=== PATIENT | female | born 1970 | race Caucasian/White ===

== ENCOUNTER 2018-03-29 21:49 | Emergency (ER) | payer SELFPAY ==
[~2018-03-29] VITALS: Ht 165.1 cm; Wt 87.3 kg
[~2018-03-29 21:49] MED LIST: ABIL5TAB6 PO; ATEN-100 PO; CITA20 PO; MELO7.5T PO; MIRTA15 PO; MOTR200T PO; ROBA750T3 PO
[2018-03-29 21:59] VITALS: BP 190/98; PULSE 77; RESP 18; TEMP 98.6; O2SAT 99
[2018-03-29] MEDS ORDERED: ATEN100T PO (22:08)
[2018-03-29] MEDS ORDERED: PERC10TA27 PO ×2 (22:08→22:22)
[2018-03-29] MEDS ORDERED: LISI40TA PO (22:08)
[2018-03-29] MEDS ORDERED: CELE40TA PO (22:08)
[2018-03-29] MEDS ORDERED: SERO50TA PO (22:08)
[2018-03-29 22:09] VITALS: BP 173/99; PULSE 78; RESP 16; O2SAT 99
[2018-03-29] MEDS ORDERED: IBUP1TAB7 PO (22:18)
[2018-03-29] MEDS ORDERED: HYDROmorphone HCL PF 1 MG/ML VIAL IM ONE (22:30)
[2018-03-29] MEDS ORDERED: PROMETHAZINE INJ 25 MG/ML VIAL IM ONE (22:30)
[2018-03-29] MEDS ORDERED: KETOROLAC TROMETHAMINE 60 MG/2 ML (IM) VIAL IM ONE (22:30)
[2018-03-29] MEDS ORDERED: HYDROmorphone HCL PF 2 MG/ML VIAL IM ONE (22:30)
--- NOTE | 2018-03-29 22:34 | PD ---
HPI Chief Complaint: Pain: Acute or Chronic Time Seen by Provider: 22:12 Travel History International Travel<30 days: No Contact w/Intl Traveler<30days: No Traveled to known affect area: No History of Present Illness HPI The patient is a 48-year-old female that lives in [place] and is awaiting a total left hip replacement at [facility]. She has chronic hip pain and has been on Percocet 10 mg every 6 hours for the past 4 months. She says she left her bottle of Percocet in her house in [place] and needs a refill. She also wants a shot for the pain, she states her daughter is driving. She states the pain is an intensity level of 8/10 and sharp pain. He states he also has plantar fasciitis on the right foot. 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 She states the femoral head is totally gone and she needs a total hip on the left. PFSH Past Medical History Arthritis: Yes Anxiety: Yes Depression: Yes Diminished Hearing: No Hypertension: Yes Immunizations Current: Yes Tetanus Vaccination: Unknown Influenza Vaccination: Yes ?: Not Menopausal: Yes Ovarian Cysts: Yes (L) Past Surgical History Cholecystectomy: Yes Hysterectomy: Yes Tonsillectomy: Yes Social History Alcohol Use: No Tobacco Use: Yes (12/03 PPD) Substance Use: No Allergies-Medications (Allergen,Severity, Reaction): Coded Allergies: cephalexin (Unverified Allergy, Severe, RASH, 03/29/18) ondansetron (Unverified Allergy, Severe, RASH, 03/29/18) Sulfa (Sulfonamide Antibiotics) (Unverified Allergy, Intermediate, RASH, ) Reported Meds & Prescriptions Reported Meds & Active Scripts Active Reported Ibuprofen 800 Mg Tab 800 Mg PO Q6HR PRN Seroquel (Quetiapine Fumarate) 50 Mg Tab 50 Mg PO HS Celexa (Citalopram Hydrobromide) 40 Mg Tab 40 Mg PO DAILY Lisinopril 40 Mg Tab 40 Mg PO DAILY Atenolol 100 Mg Tab 100 Mg PO DAILY Percocet (Oxycodone-Acetaminophen) 10-325 mg Tab 1 Tab PO Q6H PRN Review of Systems Except as stated in HPI: all other systems reviewed are Neg Physical Exam Narrative GENERAL: Well-nourished, well-developed patient in moderate apparent distress with her right hip discomfort. Her vital signs show blood pressure 190/98 but repeat is 173/99. She states her blood pressure is elevated because of the pain. SKIN: Focused skin assessment warm/dry. No erythema is present over the left hip. There is foreshortening of the left leg. HEAD: Normocephalic. EYES: No scleral icterus. No injection or drainage. NECK: Supple, trachea midline. No JVD or lymphadenopathy. CARDIOVASCULAR: Regular rate and rhythm without murmurs, gallops, or rubs. RESPIRATORY: Breath sounds equal bilaterally. No accessory muscle use. GASTROINTESTINAL: Abdomen soft, non-tender, nondistended. MUSCULOSKELETAL: No cyanosis, or edema. There is foreshortening of the left leg. No erythema is present over the left hip. There is tenderness to direct palpation over the greater trochanter of the left hip. Movement of the left hip produces only slight pain. BACK: Nontender without obvious deformity. No CVA tenderness. Data Data Last Documented VS Vital Signs Date Time Temp Pulse Resp B/P (MAP) Pulse Ox O2 Delivery O2 Flow Rate FiO2 03/29/18 22:09 78 16 173/99 (123) 99 Room Air 03/29/18 21:59 98.6 Orders Orders Ketorolac Inj (Toradol Inj) (03/29/18 22:30) Hydromorphone Pf Inj (Dilaudid Pf Inj) (03/29/18 22:30) Promethazine Inj (Phenergan Inj) (03/29/18 22:30) MDM Medical Decision Making Medical Screen Exam Complete: Yes Emergency Medical Condition: Yes Medical Record Reviewed: Yes Differential Diagnosis Arthritis left hip, joint infection left hip-unlikely, cellulitis left hip- unlikely, fracture left hip-highly unlikely Narrative Course The patient has arthritis of the left hip and has, by history, lost her femoral head from ischemic necrosis. Her apparent pain is significant. Plan: The patient be given a prescription for Percocet 10 #15 is given a shot of Dilaudid and Toradol and Phenergan. Diagnosis Primary Impression: Hip pain Additional Impression: Medication refill Additional Instructions: As we discussed, follow-up with [facility] as soon as possible. Do not miss any appointments. Do not drive or drink alcohol on the Percocet. Med/Other Pt SpecificInfo: Prescription(s) given Scripts Oxycodone-Acetaminophen (Percocet) 10-325 mg Tab 1 TAB PO Q4H Y for PAIN, #15 TAB 0 Refills Prov: German Zhao MD 03/29/18 Disposition: 01 DISCHARGE HOME Condition: Stable German Zhao MD Mar 29, 2018 22:34
[2018-03-29 23:04] VITALS: BP 157/87
== END 2018-03-29 23:10 | disposition home or self-care (01) ==
LOC: PHED 21:49
DX: M25.552 Pain in left hip (principal); M72.2 Plantar fascial fibromatosis; M19.90 Unspecified osteoarthritis, unspecified site; F41.9 Anxiety disorder, unspecified; F32.9 Major depressive disorder, single episode, unspecified; I10 Essential (primary) hypertension; F17.200 Nicotine dependence, unspecified, uncomplicated; Z76.0 Encounter for issue of repeat prescription; Z79.899 Other long term (current) drug therapy
CPT/HCPCS: 96372; 99283; J1170; J1885; J2550